=== PATIENT | male | born 1955 | race Caucasian/White ===

== ENCOUNTER 2018-11-18 17:51 | Emergency (ER) | payer BC, OTHER ==
[~2018-11-18] VITALS: Ht 175.3 cm; Wt 72.6 kg
[2018-11-18 18:11] VITALS: BP 140/92
[2018-11-18] MEDS ORDERED: cefTRIAXone SOD 1,000 MG VL IM ONE (19:00)
== END 2018-11-18 19:40 | disposition home or self-care (01) ==
LOC: ER 18:08 → EDBD 18:08 → ER 19:40
DX: S61.213A Laceration without foreign body of left middle finger without damage to nail, initial encounter (principal); W26.9XXA Contact with unspecified sharp object(s), initial encounter; Y93.89 Activity, other specified; Y99.8 Other external cause status; Y92.89 Other specified places as the place of occurrence of the external cause
CPT/HCPCS: 12002; 73140; 96372; 99283; J0696